=== PATIENT | male | born 1970 | race Caucasian/White ===

== ENCOUNTER → 2018-07-09 | Outpatient (CLI) | payer BC ==
[2018-07-10 06:14] LABS: RBC 5.38 x10E6/uL (4.14-5.80)
[2018-07-10 07:06] LABS: HEP B CORE AB TOTAL 006718 Negative (Negative); HEPATITIS B SURFACE AB 006395 Reactive (.); HEPATITIS B SURFACE AG Negative (Negative)
[2018-07-12 01:10] LABS: G-6-PD, QUANT 311 (146-376)
[2018-07-13 18:05] LABS: TB1 Ag VALUE 0.04 IU/mL (.)
[2018-07-15 13:05] LABS: HLA-B27 ANTIGEN Negative (.)
== END | disposition home or self-care (01) ==
LOC: LAB 11:31
PROVIDERS: Internal Medicine Rheumatology
DX: K76.0 Fatty (change of) liver, not elsewhere classified (principal); M25.551 Pain in right hip; M25.552 Pain in left hip; M54.9 Dorsalgia, unspecified; M79.89 Other specified soft tissue disorders; R79.89 Other specified abnormal findings of blood chemistry; M25.541 Pain in joints of right hand; M25.542 Pain in joints of left hand; M54.2 Cervicalgia; M79.641 Pain in right hand; M79.642 Pain in left hand